=== PATIENT | female | born 2000 | race Caucasian/White ===

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

== ENCOUNTER 2022-09-17 12:16 | Day surgery (SDC) | payer OTHER, SELFPAY ==
[2022-09-11 13:29] VITALS: BMI 24.2
--- NOTE | 2022-09-17 12:38 | P.HP_ITS ---
History of Present Illness History of Present Illness Date Patient Seen: 09/17/22 Time Patient Seen: 12:38 Chief complaint: SDC Narrative: 21-year-old female last seen in clinic 07/07/2022 presents for tonsillectomy and possible revision adenoidectomy for known mild ADDISON chronic tonsillitis tonsil stones and dysphagia. Remote history of BMT/adenoidectomy age 7. No interval health changes no recent cough cold or fever. [facility] Medical History Allergies Anxiety Chronic tonsillitis Depression Healthy adult Mononucleosis ADDISON (obstructive sleep apnea) Tonsillar hypertrophy Surgical History Hx of adenoidectomy (2007) [place] teeth removed Social History household members: family Smoking Status: Never smoker alcohol intake: never Meds Home Medications and Allergies Home Medications Medication Instructions Recorded Confirmed Type azithromycin 250 mg tablet See Rx Instructions PO .COMPLEX #6 07/29/20 Rx tabs fluconazole 100 mg tablet 100 mg PO DAILY #2 tabs 07/29/20 Rx (Diflucan) Allergies Allergy/AdvReac Type Severity Reaction Status Date / Time amoxicillin Allergy Rash Verified 09/11/22 13:36 azithromycin Allergy Hives, rash Verified 09/11/22 13:36 Review of Systems Review of Systems Narrative: Negative except as listed in the HPI Exam Narrative Exam Narrative: Well-developed well-nourished, heart regular rate and rhythm without murmur, lungs clear to auscultation bilaterally Assessment & Plan Assessment & Plan narrative: Assessment: Mild ADDISON, tonsillar hypertrophy, chronic tonsillitis, tonsil stone, dysphagia Plan: Following discussion of the material risks benefits complications and alternatives, the patient elected to proceed.
--- NOTE | 2022-09-17 12:38 | PM.PREOP ---
Pre-operative Note Interval Note History & Physical reviewed/Exam performed by Physician: Yes Changes to H&P: No
--- NOTE | 2022-09-17 12:40 | PM.OP.1 ---
Operative Date/Time/Diagnoses Date of procedure: 09/17/22 Time of procedure: 14:21 Pre-op diagnosis: Mild ADDISON, tonsillar hypertrophy, chronic tonsillitis, tonsil stone, dysphagia Post-op diagnosis: same Procedure & Clinicians Procedure: Tonsillectomy Same procedure as scheduled: Yes Indications: 21 Year old with the above diagnoses incompletely managed with medical therapy presents for the above procedure. Following discussion of the material risks benefits complications and alternatives, the parents elected to proceed. Surgeon: Keyon Corbin Click Yes if Unassisted: Yes Anesthesia Type: General and Local Operative Notes Findings: 3+ tonsils, no significant adenoid tissue, intact palate, single uvula Estimated Blood Loss (mL): 5 Procedure in detail: Following identification and confirmation of consent the patient was brought to the operating room suite and placed in the supine position. General endotracheal anesthesia was administered. A head wrap, shoulder roll, and mouth gag were placed and a red rubber catheter was inserted through the nostril and out the mouth to retract the soft palate. There was no significant adenoid tissue. The left tonsil was retracted medially and suction electrocautery on a setting of 30 was used to dissect the tonsil in a subcapsular plane, followed by hemostasis with the same. This process was repeated on the right side with identical findings. The tonsillar fossae were superficially infiltrated bilaterally with 2% lidocaine 1 100,000 epinephrine. Mouth gag and rubber catheter were removed and the patient was extubated in the operating room and taken to the recovery room in stable condition without known complication. Complications: none Post-operative Condition: stable Disposition: same day surgery Plan for aftercare: Push fluids, alternate Tylenol and Advil every 3 hours for baseline pain control, oxycodone for breakthrough pain. Soft diet 2 full weeks, no heavy lifting or straining 2 weeks.
[2022-09-17 13:05] VITALS: BMI 23.5
[2022-09-17 13:21] VITALS: BP 120/76; PULSE 92; RESP 16; TEMP 36.3; O2SAT 100
[2022-09-17] MEDS: LACTATED RINGERS 1,000 ML 100 ML IV (13:21)
--- NOTE | 2022-09-17 13:45 | SUR.OPER ---
Supine on padded OR bed, head on pillow, arms secured on padded arm boards at <90 degrees abduction, legs uncrossed, safety belt at thigh, tape over blanket over lower legs.
[2022-09-17] MEDS: LIDOCAINE 2% W/EPI INJ 20 ML INJ (14:17)
[2022-09-17 14:27] VITALS: BP 100/61; PULSE 93; RESP 8; TEMP 35.9; O2SAT 90
[2022-09-17 14:32] VITALS: BP 96/63; PULSE 87; RESP 13; O2SAT 94
[2022-09-17 14:37] VITALS: BP 94/67; PULSE 97; RESP 12; O2SAT 99
[2022-09-17 14:47] VITALS: BP 118/84; BP 130/79; PULSE 87; PULSE 90; RESP 18; O2SAT 96; O2SAT 98
[2022-09-17] MEDS: ACETAMINOPHEN SUSP 650 MG/20.3 ML UDC PO (14:49)
[2022-09-17] MEDS: OXYCODONE 5 MG/5 ML ORAL SOLUTION PO (14:49)
[2022-09-17] MEDS: ONDANSETRON 4 MG/2 ML INJ IV (14:56)
[2022-09-17 15:01] VITALS: BP 130/79; PULSE 93; RESP 15; O2SAT 98
== END 2022-09-17 16:11 | disposition home or self-care (01) ==
PROVIDERS: PCP Nurse Practitioner Family; Referring Provider Otolaryngology; Visit Provider Otolaryngology
PROC: (CPT 42826; principal; 2022-09-17 13:15)
DX: J35.01 Chronic tonsillitis (principal); G47.33 Obstructive sleep apnea (adult) (pediatric); J35.8 Other chronic diseases of tonsils and adenoids
CPT/HCPCS: 42826; J1100; J2250; J2405; J2704; J3010